=== PATIENT | female | born 1955 | race Caucasian/White ===

== ENCOUNTER 2016-12-30 12:12 | Day surgery (SDC) | payer OTHER ==
[~2016-12-30 12:12] MED LIST: CeFAZolin 1 GM/DEXTROSE 50 ML IV ONE; DiphenhydrAMINE HCL 50 MG/ML VIAL IVP ONE; FentaNYL CITRATE-PF 100 MCG/2 ML VIAL IVP ONE; MIDAZOLAM HCL 2 MG/2 ML VIAL IVP ONE; NAPROXEN 500 MG TABLET PO ONE; OMEPRAZOLE 20 MG CAPSULE PO ONE; SODIUM CHLORIDE 0.9% 1,000 ML IV ONE; SODIUM CHLORIDE 0.9% 1,000 ML IV SCH
[2016-12-30] MEDS ORDERED: SODIUM CHLORIDE 0.9% 1,000 ML IV ONE (12:38)
[2016-12-30 12:58] LABS: BASOPHILS # (AUTO) 0.02 K/uL (0.00-0.20); BASOPHILS % (AUTO) 0.4 % (0.0-2.0); EOSINOPHILS # (AUTO) 0.06 K/uL (0.00-0.70); EOSINOPHILS % (AUTO) 1.06 % (1.0-6.0); HEMATOCRIT 40.4 % (36-46); HEMOGLOBIN 13.6 g/dL (12.0-16.0); LYMPHOCYTES # (AUTO) 2.1 K/uL (1.0-4.8); LYMPHOCYTES % (AUTO) 37.6 % (22.0-44.0); MEAN CORPUSCULAR HEMOGLOBIN 31.9 pg (26.0-34.0); MEAN CORPUSCULAR HGB CONC 33.7 G/dL (31.0-37.0); MEAN CORPUSCULAR VOLUME 95 fL (80-100); MONOCYTES # (AUTO) 0.5 K/uL (0.1-1.0); MONOCYTES % (AUTO) 8.4 % (2.0-9.0); NEUTROPHILS # (AUTO) 2.9 K/uL (1.8-7.7); NEUTROPHILS % (AUTO) 52.6 % (40.0-70.0); PLATELET COUNT (AUTO) 225 K/uL (150-450); RED BLOOD CELL COUNT(AUTO) 4.26 MIL/uL (4.00-5.20); RED CELL DISTRIBUTION WIDTH 13.3 % (11.5-14.5); WHITE BLOOD COUNT (AUTO) 5.6 K/uL (4.5-11.0)
[2016-12-30] MEDS ORDERED: DIPH25CA85 PO (13:02)
[2016-12-30] MEDS ORDERED: NAPR-58 PO (13:02)
[2016-12-30] MEDS ORDERED: [UNRECOGNIZED DRUG - CODE] RC (13:02)
[2016-12-30] MEDS ORDERED: ATEN25 PO (13:02)
[2016-12-30] MEDS ORDERED: HYDR25TA PO (13:02)
[2016-12-30] MEDS ORDERED: OMEP10CA41 PO (13:02)
[2016-12-30] MEDS ORDERED: CETI10TA86 PO (13:02)
[2016-12-30] MEDS ORDERED: LEVO250T58 PO (13:02)
[2016-12-30] MEDS ORDERED: LISI-618 PO (13:02)
[2016-12-30 13:32] LABS: ANION GAP 11 mmol/L (8-16); CALCIUM, TOTAL 8.7 mg/dL (8.8-10.5); CARBON DIOXIDE 27 mmol/L (22-29); CHLORIDE 107 mmol/L (98-107); GLOMERULAR FILTR. RATE CALC > 60 mL/min (>60); POTASSIUM 4.4 mmol/L (3.5-5.1); SODIUM SERUM 145 mmol/L (136-145); UREA NITROGEN, BLOOD 19 mg/dL (7-18)
[2016-12-30] MEDS ORDERED: DiphenhydrAMINE HCL 50 MG/ML VIAL ONE (13:45)
[2016-12-30] MEDS ORDERED: HEPARIN SODIUM 1000 UNITS/NS 0 ML ONE (14:39)
[2016-12-30] MEDS ORDERED: LIDOCAINE HCL/PF 1% 30 ML VIAL ONE (14:46)
[2016-12-30] MEDS ORDERED: FentaNYL CITRATE-PF 100 MCG/2 ML VIAL ONE (14:48)
[2016-12-30] MEDS ORDERED: MIDAZOLAM HCL 2 MG/2 ML VIAL ONE (14:49)
[2016-12-30] MEDS ORDERED: MIDAZOLAM HCL 2 MG/2 ML VIAL IVP ONE (15:00)
[2016-12-30] MEDS ORDERED: IODIXANOL 320 MG/ML 150 ML VIAL IVP ONE (15:00)
[2016-12-30] MEDS ORDERED: FentaNYL CITRATE-PF 100 MCG/2 ML VIAL IVP ONE (15:00)
[2016-12-30] MEDS ORDERED: HEPARIN SODIUM 1000 UNITS/NS 500 ML ONE (15:58)
[2016-12-30] MEDS ORDERED: COMP25S PR (17:55)
[2017-01-07] MEDS ORDERED: IODIXANOL 320 MG/ML 150 ML VIAL ONE (12:08)
== END 2016-12-30 19:30 | disposition home or self-care (01) ==
LOC: SDS 12:12 → EDSTATUS 14:00 → SDS 19:30
PROVIDERS: ATTEND Radiology Vascular & Interventional Radiology
DX: D25.9 Leiomyoma of uterus, unspecified (principal); I10 Essential (primary) hypertension; M54.9 Dorsalgia, unspecified; Z88.0 Allergy status to penicillin; Z88.8 Allergy status to other drugs, medicaments and biological substances; Z72.89 Other problems related to lifestyle; Z98.41 Cataract extraction status, right eye; Z79.01 Long term (current) use of anticoagulants
CPT/HCPCS: 36247; 36415; 37243; 75736; 75774; 80048; 85025; C1769 ×2; C1887; C1892; J1200; J1644; J2250; J3010; J3490; J7030; Q9967; 76937